=== PATIENT | male | born 1970 | race Caucasian/White ===

== ENCOUNTER → 2023-04-15 09:51 | Outpatient (CLI) | payer OTHER, SELFPAY ==
--- NOTE | 2023-04-15 09:51 | CT_ITS ---
FINAL REPORT TECHNIQUE: After the administration of intravenous contrast, axial images were obtained through the abdomen and pelvis by computed tomography. Oral contrast was also administered. This study was performed with technique to keep radiation doses as low as reasonably achievable, (ALARA). Individualized dose reduction techniques using automated exposure control or adjustment of the MA and/or KV according to the patient's size were employed. CLINICAL HISTORY: right lower quad pain FINDINGS: Abdomen: The lung bases are clear. There is fatty infiltration of the liver. The spleen is unremarkable. The adrenals are normal. The pancreas is unremarkable. The kidneys enhance appropriately. The aorta is normal in caliber. There is no free fluid or adenopathy. There is a small umbilical hernia containing fat. Pelvis: The appendix is normal. There is mild wall thickening of the sigmoid colon and rectum which may represent colitis. Postoperative changes are seen in the right inguinal region. There is a small left inguinal hernia containing fat. The urinary bladder is unremarkable. There is no free fluid or adenopathy. IMPRESSION: Mild wall thickening of the sigmoid colon and rectum which may represent colitis. Reviewed, Interpreted and Dictated by Jayy Childers III, MD Transcribed by Ashly Barreto Authenticated and [facility]
== END ==
LOC: RAD 09:51
PROVIDERS: PCP Family Medicine; Visit Provider Surgery
DX: R10.31 Right lower quadrant pain (principal)
CPT/HCPCS: 74177; Q9967

== ENCOUNTER 2025-01-14 17:12 | Emergency (ER) | payer OTHER, SELFPAY ==
[2025-01-14] VITALS (9 sets, daily range): BP systolic 109–134; BP diastolic 53–87; PULSE 105–117; RESP 17–31; TEMP 37.8–38.2; O2SAT 91–100; BMI 30.7
--- NOTE | 2025-01-14 17:21 | ED_ITS ---
Discharge Plan Disposition Patient Disposition: Home, Self-Care Condition: Good Prescriptions Prescriptions: No Action Vitamin D (with calcium) 77-400 mg-unit Tablet 1 tab PO DAILY Referrals Follow up/Referrals: Provider,Referral, MD [Primary Care Provider] - See instructions Activity Restrictions/Add. Instructions Additional Instructions/Restrictions: I recommend continue taking Tylenol alternating with Motrin for febrile symptoms. I recommend not returning to work until you have been fever free for 24 hours. If you have any worsening signs or symptoms follow-up with your PCP return to the ER as needed. Clinical Impressions Clinical Impression: Coronavirus infection Print Language Print Language: Telugu Discharge ED Provider: Doug Nickerson General Adult HPI <JOHN Velasquez - Last Filed: 01/14/25 22:29> General Chief complaint: Fever Stated complaint: Seizure Time Seen by Provider: 01/14/25 17:21 History of Present Illness HPI narrative: Patient presents for evaluation of rigors. Patient reports that he was at work today and he began feeling suddenly very cold with chills and uncontrollable shaking. He did not lose consciousness however it was initially reported on- call at that it could have been a possible seizure. Patient clearly did not have a seizure and recalls all of his events never lost consciousness and is awake alert and oriented person place circumstance. He denies any headache cough shortness of breath hemoptysis hematochezia melena nausea vomiting diarrhea. Related Data Home Medications ?Medication ?Instructions ?Recorded ?Confirmed calcium phosphate,dibasic 77 1 tab PO DAILY 01/14/25 mg-vitamin D3 400 unit tablet Allergies Allergy/AdvReac Type Severity Reaction Status Date / Time cinnamon Allergy Other Verified 01/14/25 17:47 Penicillins Allergy Rash Verified 01/14/25 17:47 PFSH <JOHN Velasquez - Last Filed: 01/14/25 22:29> FOR[facility]LY [facility] Disclaimer: The information contained in this section may have been updated after the patient was seen, as this information can be updated by other users. Surgical History History of right inguinal hernia repair Social History Smoking Status: Never smoker alcohol intake: never current occupational status: employed Travel in the last 8 weeks: None Have you lived/traveled outside [place] in past 30 days?: No Contact w/someone who lives/traveled outside US past 30 days?: No Exposure to someone with infectious disease in past 14 days?: No Do you have a fever (greater than 100.4 F or 38 C)?: No Have you tested positive for COVID-19: No Exposed to someone with COVID-19 in past 14 days?: No Do you have a sore throat?: No Do you have a cough?: No Do you have any weakness?: No Do you have any diarrhea?: No Are you experiencing any unusual bleeding?: No Do you have any muscle aches/pain?: No Do you have any abdominal pain?: No Are you experiencing loss of taste or smell?: No <JOHN Velasquez - Last Filed: 01/14/25 22:29> ROS Obtained: Yes Systems reviewed as appropriate & no additional complaints except as documented Physical Exam <JOHN Velasquez - Last Filed: 01/14/25 22:29> General General appearance: alert and in no apparent distress Respiratory Respiratory exam: Present normal lung sounds bilaterally Cardiovascular Cardiovascular exam: Present tachycardia Neurological Exam Neurological exam: Present alert, oriented X3, CN II-XII intact and normal gait; Absent motor sensory deficit Skin Skin exam: Present dry Medical Decision Making <JOHN Velasquez - Last Filed: 01/14/25 22:29> Medical Records Medical records reviewed: Yes I reviewed the patient's medical records. Screening: Per USPSTF and CDC recommendations, given the prevalence of disease in our region, it is our hospital?s policy to screen for HIV and viral Hepatitis for all patients aged 18 and over and those with ongoing risk factors. Lucho Inquiry Pt receiving controlled substance: No Vital Signs: 01/14/25 17:15 01/14/25 17:30 01/14/25 17:44 Temperature 100.8 F H Temperature Source Oral Oral Pulse Rate 117 H Pulse Rate [Left Radial] 112 H Respiratory Rate 24 19 Blood Pressure 128/87 Blood Pressure [Left Arm] 134/87 Blood Pressure Mean [Left Arm] 102 Blood Pressure Source Blood Pressure Source [Left Arm] Automatic Cuff Blood Pressure Position Blood Pressure Position [Left Arm] Sitting 02 Sat by Pulse Oximetry 93 L 94 L Oxygen Delivery Method Room Air Room Air 01/14/25 18:00 01/14/25 18:30 01/14/25 18:45 Temperature Temperature Source Pulse Rate 113 H 111 H 111 H Pulse Rate [Left Radial] Respiratory Rate 29 H 31 H 30 H Blood Pressure 130/83 131/82 Blood Pressure [Left Arm] Blood Pressure Mean [Left Arm] Blood Pressure Source Blood Pressure Source [Left Arm] Blood Pressure Position Blood Pressure Position [Left Arm] 02 Sat by Pulse Oximetry 97 95 94 L Oxygen Delivery Method 01/14/25 19:20 01/14/25 20:01 01/14/25 20:30 Temperature Temperature Source Pulse Rate 110 H 117 H 113 H Pulse Rate [Left Radial] Respiratory Rate Blood Pressure 116/72 115/53 L 109/59 L Blood Pressure [Left Arm] Blood Pressure Mean [Left Arm] Blood Pressure Source Blood Pressure Source [Left Arm] Blood Pressure Position Blood Pressure Position [Left Arm] 02 Sat by Pulse Oximetry 94 L 94 L 91 L Oxygen Delivery Method 01/14/25 20:55 Temperature 100.0 F H Temperature Source Oral Pulse Rate 105 H Pulse Rate [Left Radial] Respiratory Rate 17 Blood Pressure 110/62 Blood Pressure [Left Arm] Blood Pressure Mean [Left Arm] Blood Pressure Source Automatic Cuff Blood Pressure Source [Left Arm] Blood Pressure Position Sitting Blood Pressure Position [Left Arm] 02 Sat by Pulse Oximetry Oxygen Delivery Method Room Air Lab Data Lab results reviewed: Yes I reviewed the patient's lab results. Lab Results 01/14/25 17:23: WBC 6.2, RBC 4.78, Hgb 12.2 L, Hct 38.5 L, MCV 80.5, MCH 25.5 L, MCHC 31.7 L, RDW 13.8, Plt Count 236, MPV 9.7, Neut % (Auto) 91.2 H, Lymph % (Auto) 6.8 L, Pickett % (Auto) 1.0 L, Eos % (Auto) 0.5, Baso % (Auto) 0.2, Neut # (Auto) 5.7, Lymph # (Auto) 0.4 L, Pickett # (Auto) 0.1, Eos # (Auto) 0.0, Baso # (Auto) 0.0, Total Counted 100, Neutrophils % (Manual) 91 H, Lymphocytes % (Manual) 7 L, Eosinophils % (Manual) 1, Basophils % (Manual) 1.0, Platelet Estimate Normal, Poikilocytosis 1+, Target Cells 1+, PT 10.8, INR 0.96, Sodium 141, Potassium 3.9, Chloride 104, Carbon Dioxide 26, Anion Gap 14.9, BUN 15, Creatinine 0.80, Estimated Creat Clear 123, Estimated GFR 101, Est GFR ( Amer) 122, Glucose 94, Calcium 9.1, Total Bilirubin 1.1, AST 33, ALT 41, Alkaline Phosphatase 46, NT-Pro-B Natriuret Pep 59.1, Total Protein 7.4, Albumin 4.5, Globulin 2.9, Albumin/Globulin Ratio 1.6, Procalcitonin 0.411, HCV Ab ROBERTO w/Rflx PCR Qn Negative, HIV Ag/Ab Combo Qual Negative 01/14/25 17:54: Chlamy pneumoniae PCR Not detected, Adenovirus (PCR) Not detected, B. pertussis DNA (PCR) Not detected, Coronavirus OC43 (PCR) Not detected, Coronavirus HKU1 (PCR) Detected A, Coronavirus 229E (PCR) Not detected, SARS-CoV-2 (PCR) Not detected, Coronavirus NL63 (PCR) Not detected, Human Metapneumovir PCR Not detected, Influenza A (H1) PCR Not detected, Influ A (H1N1/09) PCR Not detected, Influenza A (H3) PCR Not detected, Influenza Type A (PCR) Not detected, Influenza Type B (PCR) Not detected, M. pneumoniae (PCR) Not detected, Parainfluenza 1 (PCR) Not detected, Parainfluenza 2 (PCR) Not detected, Parainfluenza 3 (PCR) Not detected, Parainfluenza 4 (PCR) Not detected, RSV (PCR) Not detected, Entero/Rhino (PCR) Not detected 01/14/25 19:07: Urine Color Yellow, Urine Appearance Clear, Urine pH 7.0, Ur Specific [place] 1.020, Urine Protein Negative, Urine Glucose (UA) Negative, Urine Ketones Negative, Urine Blood Trace-l, Urine Nitrate Negative, Urine Bilirubin Negative, Urine Urobilinogen 0.2, Ur Leukocyte Esterase Negative, Urine RBC 3-5, Urine WBC 3-5, Ur Squamous Epith Cells 3-5, Urine Bacteria 1+, Urine Mucus 1+ 01/14/25 17:23 01/14/25 17:23 Orders (Tests/Meds): ED MEDICATIONS Discontinued Medications Generic Name Dose Route Start Last Admin Trade Name Freq PRN Reason Stop Dose Admin Acetaminophen 1,000 mg 01/14/25 17:49 01/14/25 17:59 Acetaminophen 1,000mg/100ml Vial IV 01/14/25 17:50 1,000 mg ONCE ONE Administration Lactated Ringer's 1,810 mls @ 905 mls/hr 01/14/25 17:49 01/14/25 17:59 Lactated Ringer's 1000 Ml Bag 30 ml/kg infuse over 2 hr (1810 ml) 01/14/25 19:48 905 mls/hr IV Administration .Q2H ONE Iopamidol 70 ml 01/14/25 19:16 01/14/25 19:18 Iopamidol-370 (76%);100ml Bottle IV 01/14/25 19:17 70 ml ONCE ONE Administration Sodium Chloride 50 ml 01/14/25 19:16 01/14/25 19:18 0.9 % Sodium Chloride 50 Ml Vial IV 01/14/25 19:17 50 ml ONCE ONE Administration Sodium Chloride 10 ml 01/14/25 19:16 01/14/25 19:18 Sodium Chloride 0.9% 10ml Syr (Rad Only) IV 02/13/25 19:15 10 ml NEEDED PRN Administration Maintain IV Site ORDERS Category Date Time Status CT abdomen pelvis w con Stat Cat Scan 01/14/25 17:[address] angio chest PE protocol Stat Cat Scan 01/14/25 17:47 Completed BNP [NT Pro Brain Natriuretic Pep.] Stat Lab 01/14/25 17:23 Completed CBC w/Auto Diff [Complete Blood Count Auto Diff] Stat Lab 01/14/25 17:23 Completed CMP [Comprehensive Metabolic Panel] Stat Lab 01/14/25 17:23 Completed Full Resp Panel w/COVID ([facility]) Routine Lab 01/14/25 17:54 Completed HIV Combo Stat Lab 01/14/25 17:23 Completed Hepatitis C Ab Qual. W/ RFX Stat Lab 01/14/25 17:23 Completed INR [Prothrombin Time INR] Stat Lab 01/14/25 17:23 Completed Procalcitonin Stat Lab 01/14/25 17:23 Completed UA [Urinalysis and Microscopic] Stat Lab 01/14/25 19:07 Completed Blood Culture Stat Micro 01/14/25 17:54 Results Tissue Perfus/Sepsis Re-Eval Sepsis Re-Evaluation Performed: Yes Date Performed: 01/14/25 Time Performed: 19:00 Medical Decision Narrative: In summary patient is a 54-year-old male who presents to the emergency department for evaluation of rigors. Patient is normotensive initially with a blood pressure 134/87 tachycardic with a rate of 112 and sinus tachycardia on the bedside monitor breathing 24 times a minute satting at 93% on room air upon arrival, the temperature of 103.1 orally taken by myself at the time of my exam. Physical exam is remarkable for clear breath sounds with no increased work of breathing adventitious sounds or accessory muscle use, [place] Coma Score 15 patient is awake alert and oriented person place circumstance patient has no meningeal signs or nuchal rigidity posterior pharynx is normal without exudate patient has no cervical lymphadenopathy abdomen soft without rebound or guarding or rigidity normal bowel sounds.. Differential diagnosis includes bacteremia versus pneumonia versus viral infection etc. Initial workup will be conducted with hematologic labs blood cultures full respiratory panel CT scan chest abdomen pelvis urinalysis. Initial interventions include sepsis bolus Tylenol Toradol Zofran. Initial workup reviewed by me and his hematologic labs are reassuring with a white count of 6.2 hemoglobin hematocrit 12.2 and 38.5 respectively with a absolute neutrophil count of 5.7, INR is 0.96, his CMP is within normal limits and nonactionable including a NT proBNP of 59 normal transaminases no electrolyte abnormalities, his procalcitonin is 0.411, urinalysis is negative for nitrites or leukocyte esterase however his full respiratory panel is positive for coronavirus H KU 1. My informal interpretation of his imaging shows no evidence of acute infection abnormality infiltrate process.. Upon repeat evaluation patient has responded well to initial resuscitation with his heart rate coming down to 105 respiratory rate down to 17 temperature of 100.0 orally. Given this patient is appropriate for discharge with instructions for symptomatic and supportive care including Tylenol alternating with Motrin and strict return precautions. Patient verbalized understanding and agreement. <Doug Nickerson MD - Last Filed: 01/16/25 07:20> Vital Signs: 01/14/25 17:15 01/14/25 17:30 01/14/25 17:44 Temperature 100.8 F H Temperature Source Oral Oral Pulse Rate 117 H Pulse Rate [Left Radial] 112 H Respiratory Rate 24 19 Blood Pressure 128/87 Blood Pressure [Left Arm] 134/87 Blood Pressure Mean [Left Arm] 102 Blood Pressure Source Blood Pressure Source [Left Arm] Automatic Cuff Blood Pressure Position Blood Pressure Position [Left Arm] Sitting 02 Sat by Pulse Oximetry 93 L 94 L Oxygen Delivery Method Room Air Room Air 01/14/25 18:00 01/14/25 18:30 01/14/25 18:45 Temperature Temperature Source Pulse Rate 113 H 111 H 111 H Pulse Rate [Left Radial] Respiratory Rate 29 H 31 H 30 H Blood Pressure 130/83 131/82 Blood Pressure [Left Arm] Blood Pressure Mean [Left Arm] Blood Pressure Source Blood Pressure Source [Left Arm] Blood Pressure Position Blood Pressure Position [Left Arm] 02 Sat by Pulse Oximetry 97 95 94 L Oxygen Delivery Method 01/14/25 19:20 01/14/25 20:01 01/14/25 20:30 Temperature Temperature Source Pulse Rate 110 H 117 H 113 H Pulse Rate [Left Radial] Respiratory Rate Blood Pressure 116/72 115/53 L 109/59 L Blood Pressure [Left Arm] Blood Pressure Mean [Left Arm] Blood Pressure Source Blood Pressure Source [Left Arm] Blood Pressure Position Blood Pressure Position [Left Arm] 02 Sat by Pulse Oximetry 94 L 94 L 91 L Oxygen Delivery Method 01/14/25 20:55 Temperature 100.0 F H Temperature Source Oral Pulse Rate 105 H Pulse Rate [Left Radial] Respiratory Rate 17 Blood Pressure 110/62 Blood Pressure [Left Arm] Blood Pressure Mean [Left Arm] Blood Pressure Source Automatic Cuff Blood Pressure Source [Left Arm] Blood Pressure Position Sitting Blood Pressure Position [Left Arm] 02 Sat by Pulse Oximetry Oxygen Delivery Method Room Air Lab Data Lab Results 01/14/25 17:23: WBC 6.2, RBC 4.78, Hgb 12.2 L, Hct 38.5 L, MCV 80.5, MCH 25.5 L, MCHC 31.7 L, RDW 13.8, Plt Count 236, MPV 9.7, Neut % (Auto) 91.2 H, Lymph % (Auto) 6.8 L, Pickett % (Auto) 1.0 L, Eos % (Auto) 0.5, Baso % (Auto) 0.2, Neut # (Auto) 5.7, Lymph # (Auto) 0.4 L, Pickett # (Auto) 0.1, Eos # (Auto) 0.0, Baso # (Auto) 0.0, Total Counted 100, Neutrophils % (Manual) 91 H, Lymphocytes % (Manual) 7 L, Eosinophils % (Manual) 1, Basophils % (Manual) 1.0, Platelet Estimate Normal, Poikilocytosis 1+, Target Cells 1+, PT 10.8, INR 0.96, Sodium 141, Potassium 3.9, Chloride 104, Carbon Dioxide 26, Anion Gap 14.9, BUN 15, Creatinine 0.80, Estimated Creat Clear 123, Estimated GFR 101, Est GFR ( Amer) 122, Glucose 94, Calcium 9.1, Total Bilirubin 1.1, AST 33, ALT 41, Alkaline Phosphatase 46, NT-Pro-B Natriuret Pep 59.1, Total Protein 7.4, Albumin 4.5, Globulin 2.9, Albumin/Globulin Ratio 1.6, Procalcitonin 0.411, HCV Ab ROBERTO w/Rflx PCR Qn Negative, HIV Ag/Ab Combo Qual Negative 01/14/25 17:54: Chlamy pneumoniae PCR Not detected, Adenovirus (PCR) Not detected, B. pertussis DNA (PCR) Not detected, Coronavirus OC43 (PCR) Not detected, Coronavirus HKU1 (PCR) Detected A, Coronavirus 229E (PCR) Not detected, SARS-CoV-2 (PCR) Not detected, Coronavirus NL63 (PCR) Not detected, Human Metapneumovir PCR Not detected, Influenza A (H1) PCR Not detected, Influ A (H1N1/09) PCR Not detected, Influenza A (H3) PCR Not detected, Influenza Type A (PCR) Not detected, Influenza Type B (PCR) Not detected, M. pneumoniae (PCR) Not detected, Parainfluenza 1 (PCR) Not detected, Parainfluenza 2 (PCR) Not detected, Parainfluenza 3 (PCR) Not detected, Parainfluenza 4 (PCR) Not detected, RSV (PCR) Not detected, Entero/Rhino (PCR) Not detected 01/14/25 19:07: Urine Color Yellow, Urine Appearance Clear, Urine pH 7.0, Ur Specific [place] 1.020, Urine Protein Negative, Urine Glucose (UA) Negative, Urine Ketones Negative, Urine Blood Trace-l, Urine Nitrate Negative, Urine Bilirubin Negative, Urine Urobilinogen 0.2, Ur Leukocyte Esterase Negative, Urine RBC 3-5, Urine WBC 3-5, Ur Squamous Epith Cells 3-5, Urine Bacteria 1+, Urine Mucus 1+ Orders (Tests/Meds): ED MEDICATIONS Discontinued Medications Generic Name Dose Route Start Last Admin Trade Name Freq PRN Reason Stop Dose Admin Acetaminophen 1,000 mg 01/14/25 17:49 01/14/25 17:59 Acetaminophen 1,000mg/100ml Vial IV 01/14/25 17:50 1,000 mg ONCE ONE Administration Lactated Ringer's 1,810 mls @ 905 mls/hr 01/14/25 17:49 01/14/25 17:59 Lactated Ringer's 1000 Ml Bag 30 ml/kg infuse over 2 hr (1810 ml) 01/14/25 19:48 905 mls/hr IV Administration .Q2H ONE Iopamidol 70 ml 01/14/25 19:16 01/14/25 19:18 Iopamidol-370 (76%);100ml Bottle IV 01/14/25 19:17 70 ml ONCE ONE Administration Sodium Chloride 50 ml 01/14/25 19:16 01/14/25 19:18 0.9 % Sodium Chloride 50 Ml Vial IV 01/14/25 19:17 50 ml ONCE ONE Administration Sodium Chloride 10 ml 01/14/25 19:16 01/14/25 19:18 Sodium Chloride 0.9% 10ml Syr (Rad Only) IV 02/13/25 19:15 10 ml NEEDED PRN Administration Maintain IV Site ORDERS Category Date Time Status CT abdomen pelvis w con Stat Cat Scan 01/14/25 17:[address] angio chest PE protocol Stat Cat Scan 01/14/25 17:47 Completed BNP [NT Pro Brain Natriuretic Pep.] Stat Lab 01/14/25 17:23 Completed CBC w/Auto Diff [Complete Blood Count Auto Diff] Stat Lab 01/14/25 17:23 Completed CMP [Comprehensive Metabolic Panel] Stat Lab 01/14/25 17:23 Completed Full Resp Panel w/COVID ([facility]) Routine Lab 01/14/25 17:54 Completed HIV Combo Stat Lab 01/14/25 17:23 Completed Hepatitis C Ab Qual. W/ RFX Stat Lab 01/14/25 17:23 Completed INR [Prothrombin Time INR] Stat Lab 01/14/25 17:23 Completed Procalcitonin Stat Lab 01/14/25 17:23 Completed UA [Urinalysis and Microscopic] Stat Lab 01/14/25 19:07 Completed Blood Culture Stat Micro 01/14/25 17:54 Results ECG Data Tracing #1: I reviewed this ECG and interpreted as documented below: (Sinus tachycardia 115 bpm with WI 160, QRS 88, QTc 381. T wave inversions in 1 and aVL, no acute ischemic change otherwise with no reciprocal changes. Leftward leaning axis) Medical Decision Narrative: In summary patient is a 54-year-old male who presents to the emergency department for evaluation of rigors. Patient is normotensive initially with a blood pressure 134/87 tachycardic with a rate of 112 and sinus tachycardia on the bedside monitor breathing 24 times a minute satting at 93% on room air upon arrival, the temperature of 103.1 orally taken by myself at the time of my exam. Physical exam is remarkable for clear breath sounds with no increased work of breathing adventitious sounds or accessory muscle use, [place] Coma Score 15 patient is awake alert and oriented person place circumstance patient has no meningeal signs or nuchal rigidity posterior pharynx is normal without exudate patient has no cervical lymphadenopathy abdomen soft without rebound or guarding or rigidity normal bowel sounds.. Differential diagnosis includes bacteremia versus pneumonia versus viral infection etc. Initial workup will be conducted with hematologic labs blood cultures full respiratory panel CT scan chest abdomen pelvis urinalysis. Initial interventions include sepsis bolus Tylenol Toradol Zofran. Initial workup reviewed by me and his hematologic labs are reassuring with a white count of 6.2 hemoglobin hematocrit 12.2 and 38.5 respectively with a absolute neutrophil count of 5.7, INR is 0.96, his CMP is within normal limits and nonactionable including a NT proBNP of 59 normal transaminases no electrolyte abnormalities, his procalcitonin is 0.411, urinalysis is negative for nitrites or leukocyte esterase however his full respiratory panel is positive for coronavirus H KU 1. My informal interpretation of his imaging shows no evidence of acute infection abnormality infiltrate process.. Upon repeat evaluation patient has responded well to initial resuscitation with his heart rate coming down to 105 respiratory rate down to 17 temperature of 100.0 orally. Given this patient is appropriate for discharge with instructions for symptomatic and supportive care including Tylenol alternating with Motrin and strict return precautions. Patient verbalized understanding and agreement. I was consulted by the VIELKA, and we discussed the complexity of the problems being addressed. I approved the treatment and management plan for this patient's care in the Emergency Department, thus performing a substantive portion of the medical decision making. Doug Nickerson MD Critical Care <JOHN Velasquez - Last Filed: 01/14/25 22:29> Critical Care Time Critical Care Time: Yes Attestation: On 01/14/25, the high probability of a clinically significant, sudden or life threatening deterioration of the following system(s) required my full and direct attention, intervention and personal management. The time I documented below is in addition to time spent performing reported procedures but includes the following listed in this critical care notation. Total Time Total Critical Care Time: 35
--- NOTE | 2025-01-14 17:23 | ECG_ITS ---
APPROVED REPORT Exam: Resting ECG HR:115 bpm ECG Measurements Heart Rate 115 AXES RI 160 P 53 QRSd 88 QRS -14 QT 313 T 61 QTc 381 Conclusion Sinus tachycardia Electronically signed by : GERRI CHAPIN, 01/16/2025 12:22:30
--- NOTE | 2025-01-14 17:46 | CT_ITS ---
PROCEDURE INFORMATION: Exam: CT Abdomen And Pelvis With Contrast Exam date and time: 01/14/2025 7:12 PM Age: 54 years old Clinical indication: Other: Sepsis TECHNIQUE: Imaging protocol: Computed tomography of the abdomen and pelvis with contrast. 3D rendering (Not supervised by radiologist): MIP and/or 3D reconstructed images were created by the technologist. Radiation optimization: All CT scans at this facility use at least one of these dose optimization techniques: automated exposure control; mA and/or kV adjustment per patient size (includes targeted exams where dose is matched to clinical indication); or iterative reconstruction. Contrast material: ISOVUE; Contrast volume: 70 ml; Contrast route: IV; COMPARISON: CT ABDOMEN PELVIS W CON 04/15/2023 10:12 AM FINDINGS: Liver: Normal. No mass. Gallbladder and biliary ducts: Normal. No calcified stones. No ductal dilation. Pancreas: Normal. No ductal dilation. Spleen: Normal. No splenomegaly. Adrenal glands: Normal. No mass. Kidneys and ureters: Normal. No hydronephrosis. Stomach and bowel: Unremarkable. No obstruction. No mucosal thickening. Appendix: No evidence of appendicitis. Intraperitoneal space: Unremarkable. No free air. No significant fluid collection. Vasculature: Moderate atherosclerotic calcification throughout the aorta and iliac arteries. No evidence of aneurysm or dissection. Lymph nodes: Unremarkable. No enlarged lymph nodes. Urinary bladder: Unremarkable as visualized. Reproductive: Unremarkable as visualized. Bones/joints: Mild multilevel degenerative disc changes throughout the lower spine. No vertebral body compression. No acute fracture. Soft tissues: Unremarkable. IMPRESSION: No acute abnormality
--- NOTE | 2025-01-14 17:47 | CT_ITS ---
PROCEDURE INFORMATION: Exam: CTA Chest With Contrast Exam date and time: 01/14/2025 7:12 PM Age: 54 years old Clinical indication: Other: Sepsis TECHNIQUE: Imaging protocol: Computed tomographic angiography of the chest with contrast. Exam focused on the arteries. 3D rendering (Not supervised by radiologist): MIP and/or 3D reconstructed images were created by the technologist. Radiation optimization: All CT scans at this facility use at least one of these dose optimization techniques: automated exposure control; mA and/or kV adjustment per patient size (includes targeted exams where dose is matched to clinical indication); or iterative reconstruction. Contrast material: ISOVUE; Contrast volume: 70 ml; Contrast route: INTRAVENOUS (IV); COMPARISON: CT ANGIO CHEST PE PROTOCOL 01/14/2025 7:12 PM FINDINGS: Pulmonary arteries: Normal. No pulmonary emboli. Aorta: Unremarkable. No aortic aneurysm. No aortic dissection. Lungs: Unremarkable. No consolidation. No masses. Pleural spaces: Unremarkable. No pneumothorax. No pleural effusion. Heart: Unremarkable. No cardiomegaly. No pericardial effusion. Lymph nodes: Unremarkable. No enlarged lymph nodes. Bones/joints: Moderate multilevel anterior osteophyte formation throughout the thoracic spine. No vertebral compression. No fracture. Soft tissues: Unremarkable. IMPRESSION: No acute abnormality
[2025-01-14 17:55] LABS: Basophils % 0.2 % (0.1-2.0); Eosinophils % 0.5 % (0.1-12.0); Hematocrit 38.5 % (42.0-52.0); Hemoglobin 12.2 g/dL (14.1-18.0); Lymphocytes # 0.4 K/mm3 (0.7-4.5); Lymphocytes % 6.8 % (10-50); Mean Corpuscular HGB Conc 31.7 g/dL (31.8-35.4); Mean Corpuscular Hemoglobin 25.5 pg (27.0-31.2); Mean Corpuscular Volume 80.5 fl (80-94); Mean Platelet Volume 9.7 fl (7.4-10.4); Monocytes # 0.1 K/mm3 (0.1-1.0); Neutrophils # 5.7 K/mm3 (1.8-7.8); Neutrophils % 91.2 % (37.0-80.0); Platelet Count 236 K/mm3 (142-424); Red Blood Count 4.78 M/mm3 (4.60-6.20); Red Cell Distribution Width 13.8 % (11.5-17.5); White Blood Count 6.2 K/mm3 (4.8-10.8)
[2025-01-14] MEDS: ACETAMINOPHEN 1,000MG/100ML VIAL 1000 MG IV (17:59)
[2025-01-14 18:02] LABS: INR 0.96 (0.9-1.1); Prothrombin Time 10.8 seconds (10.1-12.5)
[2025-01-14 18:03] LABS: Adenovirus,PCR Not Detected (NotDetected); Bordetella Pertussis Not Detected (NotDetected); Chlamydophila Pneumoniae, PCR Not Detected (NotDetected); Coronavirus 19, PCR Not Detected (NotDetected); Coronavirus 229E Not Detected (NotDetected); Coronavirus NL63 Not Detected (NotDetected); Coronavirus OC43 Not Detected (NotDetected); Human Metapneumovirus Not Detected (NotDetected); Influenza A, PCR Not Detected (NotDetected); Influenza AH1, 2009 Not Detected (NotDetected); Influenza AH1, PCR Not Detected (NotDetected); Influenza AH3,PCR Not Detected (NotDetected); Influenza B, PCR Not Detected (NotDetected); Mycoplasma Pneumoniae, PCR Not Detected (NotDetected); Parainfluenza 1, PCR Not Detected (NotDetected); Parainfluenza 2, PCR Not Detected (NotDetected); Parainfluenza 3, PCR Not Detected (NotDetected); Parainfluenza 4, PCR Not Detected (NotDetected); Respiratory Syncytial Virus Not Detected (NotDetected); Rhinovirus/Enterovirus Not Detected (NotDetected)
[2025-01-14 18:09] LABS: MANUAL DIFFERENTIAL MANUAL DIFFERENTIAL (MANUAL DIFF)
[2025-01-14 18:15] LABS: Albumin Level 4.5 g/dl (3.5-5.0); Chloride 104 mmol/L (98-107); Sodium 141 mmol/L (136-145)
[2025-01-14 18:16] LABS: Potassium 3.9 mmoL/L (3.5-5.1)
[2025-01-14 18:18] LABS: Alanine Aminotransferase 41 U/L (12-78); Albumin/Globulin Ratio 1.6 (1.1-1.8); Alkaline Phosphatase 46 U/L (38-126); Anion Gap 14.9 mEq/L (5-15); Aspartate Amino Transferase 33 U/L (17-59); Bilirubin,Total 1.1 mg/dl (0.2-1.3); Blood Urea Nitrogen 15 mg/dl (9-20); Carbon Dioxide 26 mmol/L (22.0-30.0); Creatinine Clearance Estimated 123 mL/min (50-200); Estimated Glomerular Filt Rate 101 ml/min (>60); GFR (African American) 122 ML/MIN (>60); Globulin 2.9 g/dL (1.3-3.2); Total Protein,Serum 7.4 g/dl (6.3-8.2)
[2025-01-14 18:19] LABS: Calcium 9.1 mg/dl (8.4-10.2); Glucose 94 mg/dl (74-100)
[2025-01-14 18:28] LABS: NT Pro Brain Natriuretic Pep. 59.1 pg/mL (0-125)
--- NOTE | 2025-01-14 18:35 | PC.NURSE ---
Ana Luisa Zhou did a FSBS at 1715 noted it was 82
[2025-01-14 18:38] LABS: Procalcitonin 0.411 ng/mL (0.0-2.0)
[2025-01-14 18:39] LABS: Eosinophils % 1 % (0-3); Lymphocytes % 7 % (10-50); Neutrophils % 91 % (42-76); Platelet Estimate Normal; Poikilocytosis 1+; Target Cells 1+; Total Cells Counted 100
[2025-01-14 18:59] LABS: HIV Combo NEGATIVE (Negative)
[2025-01-14 19:07] LABS: Hepatitis C Ab Qual. W/ RFX NEGATIVE (Negative)
[2025-01-14 19:15] LABS: Microscopic, Urine URINE MICROSCOPIC (MICROSCOPIC)
[2025-01-14] MEDS: IOPAMIDOL-370 (76%);100ML BOTTLE 70 ML IV (19:18)
[2025-01-14] MEDS: SODIUM CHLORIDE 0.9% 10ML SYR (RAD ONLY) 10 ML IV (19:18)
[2025-01-14] MEDS: 0.9 % SODIUM CHLORIDE 50 ML VIAL IV (19:18)
[2025-01-14 19:27] LABS: Appearance,Urine CLEAR (Clear); Bilirubin,Urine Negative (Negative); Blood, Urine TRACE-L (Negative); Color,Urine YELLOW (Yellow); Glucose,Urine (UA) Negative (Negative); Ketones,Urine Negative (Negative); Leukocyte Esterase,Urine Negative (Negative); Nitrate,Urine Negative (Negative); Protein,Urine Negative (Negative); Urobilinogen,Urine 0.2 EU/dl (0.2)
[2025-01-14 20:13] LABS: Coronovirus HKU1,PCR Detected (NotDetected)
--- NOTE | 2025-01-14 20:46 | PC.NURSE ---
Pt was provided some ice water and a sandwich
[2025-01-14 21:25] LABS: Bacteria,Urine 1+ /lpf; Mucus,Urine 1+ /lpf
== END 2025-01-14 20:57 | disposition home or self-care (01) ==
PROVIDERS: Physician Assistant; Emergency Provider Emergency Medicine
DX: B34.2 Coronavirus infection, unspecified (principal); R25.9 Unspecified abnormal involuntary movements; R68.83 Chills (without fever)
CPT/HCPCS: 71275; 74177; 80053; 81001; 83880; 84145; 85007; 85025; 85027; 85610; 86803; 87040; 87389; 87633; 93005; 96361; 96374; 99291; J0131; J7120; Q9967